=== PATIENT | female | born 1965 | race Two or more races ===

== ENCOUNTER 2019-06-17 10:30 | Outpatient (AMBR) | payer MEDICAID, SELFPAY ==
--- NOTE | 2019-06-17 14:22 | PTNOTE_ITS ---
PT Outpatient Daily Note Date of Service: June 17, 2019 OP Daily Note Visit Reasons: Cervical disc Outpatient Physical Therapy Treatment Date: 06/17/19 Subjective: About the same as time of evaluation Objective: See F/S for therex MT: STM to C/S, CTJ to upper T/S paraspinals x15' Assessment: Moderate TTP of myofascial tension of cervical and T/S paraspinals that affects periscapular mm strength and C/S ROM. Plan: Continue per POC Length of Time (minutes) of Treatment: 30 Minutes Office Procedures PT Procedures PT Date of Service: 06/17/19 Therapeutic Exercise 15 minutes: Yes Manual Ritual Circumciser 15 minutes: Yes
== END 2019-07-11 23:59 | disposition home or self-care (01) ==
PROVIDERS: PCP Physician Assistant; Referring Provider Physician Assistant; Visit Provider Physician Assistant
DX: M50.20 Other cervical disc displacement, unspecified cervical region (principal); M54.6 Pain in thoracic spine
CPT/HCPCS: 97110; 97140

== ENCOUNTER → 2025-05-24 | Outpatient (CLI) | payer MEDICAID, SELFPAY ==
--- NOTE | 2025-05-24 10:00 | XR_ITS ---
Examination: Screening digital mammography, bilateral Computer aided detection 3-D breast Tomosynthesis, bilateral Date and time of exam: May 24, 2025 1008 hours Compared to mammograms dated to August 19, 2009 Indication: Screening Technique: Nonmagnified MLO, CC views of the breasts to been obtained, reconstructed from 3-D Tomosynthesis images. R2 computer aided detection program utilized for evaluation of suspicious masses and/or abnormal calcifications. 3-D Tomosynthesis images obtained. Findings: Scattered areas of fibroglandular density. Benign calcifications. No interval suspicious masses Impression: BI-RADS category II: Benign Findings. Recommend 1 year follow-up mammogram.
== END | disposition home or self-care (01) ==
LOC: CDIM 10:02
PROVIDERS: Referring Provider Physician Assistant; Visit Provider Physician Assistant
DX: Z12.31 Encounter for screening mammogram for malignant neoplasm of breast (principal); R92.323 Mammographic fibroglandular density, bilateral breasts; R92.1 Mammographic calcification found on diagnostic imaging of breast
CPT/HCPCS: 77063; 77067

== ENCOUNTER 2025-06-15 13:12 | Inpatient (IN) | payer MEDICAID, SELFPAY ==
[2025-06-15 13:27] VITALS: BP 157/80; PULSE 92; RESP 17; TEMP 36.8; O2SAT 95
[2025-06-15 13:28] VITALS: BMI 22.6
--- NOTE | 2025-06-15 13:30 | XR_ITS ---
Examination: CT abdomen and pelvis without contrast. Coronal 3-D reconstructions. Sagittal 2-D reconstructions. Date and time of exam:June 15, 2025, 1438 hours INDICATIONS: Generalized abdominal pain and vomiting today. CTDI: vol (mGy): 6.24 DLP: (mGycm): 324 Technique: Axial images of the abdomen have been obtained, 3 mm slice thickness Intravenous contrast material has not been administered. Low dose protocols were performed. One or more of the following dose reduction techniques were used; automated exposure control, adjustment of the mA and/or KV according to patient size, use of iterative reconstruction technique. Findings: Liver is irregular in contour, no focal liver lesions Absent gallbladder Spleen is not enlarged No pancreatic mass No renal or ureteral calculi Multiple fluid distended small bowel loops Normal appendix No diverticulitis Anteverted uterus No adnexal mass Urinary bladder wall thickening up to 4 mm Advanced degenerative disc disease T10-T11, L2-L3, L4-L5, L5-S1 IMPRESSION: Primary hepatocellular disease Multiple fluid distended small bowel loops, differential would include enteritis such as Crohn's disease, early small bowel obstruction, clinical correlation advised Consider three-way abdominal series follow-up
--- NOTE | 2025-06-15 13:32 | EKG_ITS ---
[facility] Test Date: 2025-06-15 Pat Name: PRABHAKAR SIU Department: Room: - Gender: Female Assembler Movement: : 1965 Requested By: Koko Peres Order Number: [id number] Reading MD: Koko Peres Measurements Intervals [place] Rate: 80 P: 55 DC: 159 QRS: 29 QRSD: 85 T: 14 QT: 336 QTc: 389 Interpretive Statements SINUS RHYTHM POSSIBLE RIGHT VENTRICULAR CONDUCTION DELAY [RSR (QR) IN V1/V2] Compared to ECG 11/25/2018 13:47:43 No significant changes /store/S0/[id number].pdf
--- NOTE | 2025-06-15 13:32 | XR_ITS ---
Examination: PA lateral chest 2 views TECHNIQUE: Upright PA lateral chest 2 views Date and time: June 15, 2025, 1400 hours INDICATIONS: Coughing beginning 2 weeks ago. FINDINGS: Normal heart size No lobar pneumonia or pulmonary edema. Partial visualization cervical orthopedic hardware IMPRESSION: No pneumonia or pulmonary edema
[2025-06-15 13:48] VITALS: PULSE 83; RESP 20; O2SAT 97
--- NOTE | 2025-06-15 13:59 | EDNOTE_ITS ---
<Statement entered by Marley Jay MD - 06/16/25 08:20> I, Marley Jay MD, have reviewed the history, exam, and assessment of the patient. I have evaluated the patient independently and agree with the plan of care documented by [ ]. All diagnostic studies were reviewed and discussed. I confirm the diagnosis as documented by the Resident. I was present during the Medical Decision Making for this patient. The patient's plan of care was created between myself and the Resident and consistent with our discussion of the patient's case. ED General RME/HPI General Stated complaint: ABDOMINAL PAIN Time Seen by Provider: 06/15/25 13:24 Arrival date/time: 06/15/25 13:12 RME / HPI RME / HPI narrative: 59-year-old female with past medical history of DM2, hypertension, lumbar com pression fractures, and asthma comes into the ED brought in by ambulance for nausea, diarrhea, vomiting, abdominal pain, and diaphoresis that started around 3 AM this morning. She stated that she woke up drenched in sweat and that she had an abdominal pain that was unbearable and she started having nausea and vomiting therefore she decided to call the ambulance to come into the ED. She states that she does take [place] for her lumbar compression fractures. Otherwise she denies having any fevers, chills, shortness of breath, blood in the vomiting or in the stools, chest pain, or shortness of breath. Admits smoking, denies any illicit drugs, denies alcohol Surgical Hx: C section Related Data Home Medications ?Medication ?Instructions ?Recorded ?Confirmed levothyroxine 150 mcg tablet 150 mcg PO DAILY ##0 02/21 (Synthroid) metformin 500 mg tablet 500 mg PO BIDAC ##0 07/15/13 (Glucophage) alprazolam 0.5 mg tablet (Xanax) 0.5 mg PO BID #0 tabs 01/21/14 gabapentin 600 mg tablet 600 mg PO TID #0 tabs Benazepril Hcl * (LOTENSIN *) 10 mg PO QDAY #0 tabs baclofen 10 mg tablet 10 mg PO TID #0 tabs 7 Previous Rx's ?Medication ?Instructions ?Recorded Hydrocodone/Acetaminophen * (NORCO 1 tab PO Q6H PRN AB DOMINAL PAIN 12/13/15 10/325 *) #40 tabs omeprazole 20 mg capsule,delayed 20 mg PO QDAY ##30 release sulfamethoxazole 800 See Rx Instructions .Route 0 12/10/18 mg-trimethoprim 160 mg tablet .COMPLEX #14 tabs (Bactrim DS) hydrocodone 5 mg-acetaminophen 325 1 tab PO BID PRN pa in #10 tabs 12/30/19 mg tablet ([place]) ibuprofen 800 mg tablet 800 mg PO TID PRN pain #30 t abs 12/30/19 Held on 08/28/21. Instructions: Resume on 08/31/21. Allergies Allergy/AdvReac Type Severity Reaction Status Date / Time phenazopyridine Allergy Severe hives Verified 06/15/25 13:48 bupropion (From Wellbutrin) Allergy Intermediate Confusion Verified 06/15/25 13:48 metoclopramide AdvReac Intermediate IRRITABLE Verified 06/15/25 13:48 prochlorperazine AdvReac Intermediate IRRITABLE Verified 06/15/25 13:48 Review of Systems Review of Systems Systems Reviewed: All systems reviewed, normal except as documented Past Medical History Past Medical History NEUROLOGIC: Negative Neurological Disorders or Seizures CARDIAC: Positive Cardiac Disorders and Hypertension; Negative Congestive Heart Failure RESPIRATORY: Positive Asthma; Negative Chronic Obstructive Pulmonary Disease (COPD) GASTROINTESTINAL: Positive Gastrointestinal Disorders and Gastroesophageal Reflux Disease GENITOURINARY: Negative Renal Disease MUSCULOSKELETAL: Positive Musculoskeletal Disorders (recent neck surgery), Arthritis and Degenerative Disk Disease ENDOCRINE: Positive Endocrine Disorders, Diabetes Mellitus Type 2 and Hypothyroidism; Negative Diabetes Mellitus Type 1 HEMATOLOGIC: Negative Blood Disorders PSYCHO/SOCIAL: Positive Anxiety OTHER HISTORY: Negative Blood Transfusions, Blood Transfusion Reaction or Anesthesia Reactions Surgical History SURGICAL: Positive Thyroidectomy Social History SMOKING STATUS: Never smoker SECOND HAND EXPOSURE: Yes SUBSTANCE USE: unknown ED Exam Narrative Physical exam: Gen: A&O X 3, NAD HEENT: NCAT, EOMI, Pupils reactive MARILY, not icteric. External ears normal. No rhinorrhea. Dry mucous membranes. Neck: Supple, full range of motion, no observable masses, No meningeal sign. Lungs: No Respiratory distress, clear bilateral. CV: RRR, no murmurs. Abdomen: Soft, nondistended, mild tenderness to L side, No rebound tenderness. MSK: No joint swelling, no redness, peripheral pulses presents, lumbar with no edema. Skin: No rashes, petechiae, lesions.. Neuro: No focal neurological deficits appreciated, sensory and motor intact. Psych: Cooperative, appropriate mood and effect. Course Quality Measures none Orders Category Date Time Status Senior Stack Engineer Q4H START 00 Care 06/15/25 13:30 Active Continuous Pulse Oximetry NOW Care 06/15/25 13:30 Active EKG (ED ONLY) *Do not use* NOW Care 06/15/25 13:[address] abdomen pelvis wo con Stat Exams 06/15/25 13:30 Taken CXRP [XR chest 1V portable] Stat Exams 06/15/25 13:32 Completed EKG (ED Only) Stat Exams 06/15/25 13:32 Draft Alcohol, Urine Stat Lab 06/15/25 14:40 Completed CBC Stat Lab 06/15/25 14:12 Completed CMP [Comprehensive Metabolic Panel] Stat Lab 06/15/25 14:12 Completed Drug Screen,Urine Stat Lab 06/15/25 14:40 Completed Lactic Acid [Lactate (Lactic Acid)] Stat Lab 06/15/25 14:12 Completed Magnesium Stat Lab 06/15/25 14:12 Completed UA [Urinalysis] Stat Lab 06/15/25 14:40 Completed Magnesium Sulfate 4 GM Ivpb [Magnesium Sulfate Ivpb] Med 06/15/25 14:59 Active 4 gm in 50 ml IV X1 Ondansetron Inj [Zofran Inj] Med 06/15/25 17:42 Once 4 mg IVP X1 ONE Ringers Lactated 1000 ml [Lactated Ringers] 1,000 ml Med 06/15/25 13:32 Discontinued IV 999 mls/hr Vital Signs Vital signs: Vital Signs Temperature 98.3 F 06/15/25 13:27 Pulse Rate 92 06/15/25 13:27 Respiratory Rate 17 06/15/25 13:27 Blood Pressure 157/80 H 06/15/25 13:27 Pulse Oximetry (%) 95 06/15/25 13:27 Oxygen Delivery Method Room Air 06/15/25 13:27 Discharge Plan Prescriptions/Referrals Prescriptions/Med Rec: No Action ibuprofen 800 mg tablet 800 mg PO TID PRN (Reason: pain) Qty: 30 0RF hydrocodone-acetaminophen [[place]] 5-325 mg tablet 1 tab PO BID MDD 10mg PRN (Reason: pain) Qty: 10 0RF metformin [Glucophage] 500 MG tablet 500 mg PO BIDAC Qty: 0 levothyroxine [Synthroid] 150 MCG tablet 150 mcg PO DAILY Qty: 0 alprazolam [Xanax] 0.5 MG tablet 0.5 mg PO BID Qty: 0 Hydrocodone/Acetaminophen * (NORCO 10/325 *) 1 TAB tablet 1 tab PO Q6H PRN (Reason: ABDOMINAL PAIN) Qty: 40 0RF gabapentin 600 MG tablet 600 mg PO TID Qty: 0 baclofen 10 MG tablet 10 mg PO TID Qty: 0 Benazepril Hcl * (LOTENSIN *) 10 MG tablet 10 mg PO QDAY Qty: 0 omeprazole 20 MG capsule,delayed release(DR/EC) 20 mg PO QDAY Qty: 30 0RF sulfamethoxazole-trimethoprim [Bactrim DS] 800-160 mg tablet See Rx Instructions .ROUTE .COMPLEX Qty: 14 0RF Rx Instructions: 1 tablet p.o. twice daily for 7 days Referrals: Nata Wang PA-C [Primary Care Provider] - In 1 week Problem List Clinical Impression: Abdominal pain, SBO (small bowel obstruction) Patient/Caregiver Discharge Instructions Print Language: Greenlandic MDM Narrative MDM hospital course: Patient was seen and evaluated by me upon arrival. Vitals were stable. At this time patient was complaining of some abdominal pain with some nausea, but otherwise no other complaints. Diagnostic imaging and labs were ordered. 14:58: Labs reviewed and showed low Mg. Ordered 4 gm Mg. 17:20: CT suspicious for early SBO. Will reevaluate patient and do PO trial as physical exam was not consistent with classic findings of SBO. 17:42: Patient reassessed. Still nauseated, but no vomiting. Abdomen still soft with good bowel sounds, not tympanic. Has pain on left side with palpation. Ordered Zofran 17:52 Care signed off to chain sales consultant ER physician, Dr. Pablo. Case disclosed with Attending Dr. Pierre Peres PGY2 Disclaimer: Even though this this note was dictated by speech recognition and even though it was carefully revised there may still be minor errors in retail sales representative due to voice recognition software. Medication Administration(s) Medication Administration History Magnesium Sulfate (Magnesium Sulfate Ivpb) 4 gm in 50 mls @ 12.5 mls/hr IV X1 ONE Stop: 06/15/25 18:58 Discontinued Medications Lactated Ringer's (Lactated Ringers) 1,000 mls @ 999 mls/hr IV .Q1H1M ONE Stop: 06/15/25 14:32 Ondansetron HCl (Ondansetron Inj 2 Mg/Ml Inj 2 Ml) 4 mg IVP X1 ONE; Protocol Stop: 06/15/25 17:43
[2025-06-15 14:26] LABS: Lactate (Lactic Acid) 0.9 mMol/L (0.4-2.0)
[2025-06-15 14:30] LABS: Basophils # (Auto) 0.0 Thou/mm3 (0.0-0.2); Basophils % (Auto) 0 % (0-2.5); Eosinophils # (Auto) 0.1 Thou/mm3 (0.0-0.5); Eosinophils % (Auto) 1 % (0-10); Hematocrit 37.8 % (36.0-46.0); Hemoglobin 13.1 g/dL (12.0-16.0); Immature Granulocytes Auto 0.02 Thou/mm3 (0.00-0.00); Lymphocytes # (Auto) 0.2 Thou/mm3 (1.0-4.8); Lymphocytes % (Auto) 2 % (10-50); Mean Corpuscular HGB Conc 34.7 g/dl (31.0-37.0); Mean Corpuscular Hemoglobin 32.3 pg (25.0-35.0); Mean Corpuscular Volume 93 fL (80-100); Monocytes # (Auto) 0.2 Thou/mm3 (0.0-0.8); Monocytes % (Auto) 2 % (0-12); Neutrophils # (Auto) 9.9 Thou/mm3 (1.8-7.7); Neutrophils % (Auto) 95 % (37-80); Nucleated Red Blood Cell # 0.00 Thou/mm3 (0.00-0.00); Nucleated Red Blood Cell % 0 /100 WBC (0); Platelet Count 217 Thou/mm3 (140-440); RDW Standard Deviation 43.5 fL (36.4-46.3); Red Blood Count 4.06 Miln/mm3 (4.00-5.20); White Blood Count 10.4 Thou/mm3 (3.6-11.0)
[2025-06-15 14:54] LABS: Alanine Aminotransferase 12 U/L (10-49); Albumin, Serum 4.3 gm/dL (3.4-4.8); Albumin/Globulin Ratio 2.2 (1.2-2.2); Alkaline Phosphatase 56 U/L (46-116); Anion Gap 8 (7-16); Aspartate Amino Transferase 16 U/L (0-34); BUN/Creatinine Ratio 27 Ratio (12-20); Bilirubin,Total 0.5 mg/dL (0.3-1.2); Blood Urea Nitrogen 16 mg/dL (9-23); Calcium 8.5 mg/dL (8.3-10.6); Calcium (Corrected) 8.5 mg/dL (8.5-10.1); Carbon Dioxide 21.6 mMol/L (20.0-31.0); Chloride 109 mMol/L (98-107); Creatinine (Component) 0.6 mg/dL (0.6-1.3); Estimated Creatinine Clearance 75.2 mL/min (>60); Globulin 2.0 gm/dL (2.3-3.5); Glucose 180 mg/dL (74-106); Magnesium 1.2 mg/dL (1.6-2.6); Osmolality,Calculated 283 (275-295); Potassium 3.9 mMol/L (3.4-5.1); Sodium 139 mMol/L (136-145); Total Protein 6.3 gm/dL (5.7-8.2); eGFR > 60 See Note
[2025-06-15 15:01] LABS: Collection Type, Urine Catheter
[2025-06-15 15:08] LABS: Bilirubin,Urine Negative (Negative); Blood,Urine 2+ (Negative); Clarity,Urine Clear (Clear/Hazy); Color,Urine Lt-Yellow (Lt Yel-Yel); Glucose, Urine 1+ (Negative); Ketones,Urine 1+ (Negative); Leukocyte Esterase,Urine Positive (Negative); Nitrite,Urine Negative (Negative); PH,Urine 6.0 (5.0-7.0); Protein,Urine Trace (Neg - Trace); RBC,Urine 9 /hpf (0-3); Specific Gravity,Urine 1.023 (1.001-1.035); Squamous Epithelial Cell,Urine 1 /hpf (0-5); Urobilinogen,Urine Negative mg/dL (0.0-1.0); WBC,Urine 2 /hpf (0-5)
[2025-06-15 15:48] LABS: Alcohol, Urine Negative (Negative); Amphetamine/Methamp Scrn,U Negative (Negative); Barbiturate Screen,Urine Negative (Negative); Benzodiazepines Screen,Urine Negative (Negative); Benzoylecgonine Screen, Ur Negative (Negative); Fentanyl Screen,Urine Negative (Negative); Opiate Screen,Urine Positive (Negative); THC Screen,Urine Positive (Negative)
[2025-06-15 17:36] VITALS: BP 143/78; PULSE 87; RESP 19; TEMP 37.3; O2SAT 98
[2025-06-15 17:43] VITALS: BP 143/78; PULSE 80; RESP 16; TEMP 36.9; O2SAT 96
[2025-06-15] MEDS: RINGERS LACTATED 1000 ML 1,000 ML 999 ML IV (18:06)
[2025-06-15] MEDS: Magnesium Sulfate 4 GM Ivpb 4 GM/50 ML BAG IV (18:07)
[2025-06-15] MEDS: ONDANSETRON INJ 2 MG/ML INJ 2 ML 4 MG IVP (18:08)
--- NOTE | 2025-06-15 18:13 | PD.EDADDENDU ---
Emergency Room Addendum <Aurora Smiley - Last Filed: 06/15/25 19:16> Addendum Narrative: I took over the care from previous shift physician, Dr. Vasquez, attending, Dr. Jay, at 6 PM on 06/15/25. See previous notes for complete H & P and ED course. I reviewed all diagnostic test results. Diagnoses include: SBO. I discussed the case with our GI and hospitalist. About the presentation and exam and diagnostics and treatments here. And need of further care in the hospital. Will accept the patient. Timmy Pablo MD <Timmy Pablo MD - Last Filed: 06/16/25 02:56> Addendum Narrative: I took over the care from previous shift physician, Dr. Vasquez (attending Dr. Jay) at 6 PM on 06/15/25. See previous notes for complete H & P and ED course. I reviewed all diagnostic test results. Diagnoses include: SBO and Enteritis. I discussed the case with our GI and hospitalist. About the presentation and exam and diagnostics and treatments here. And need of further care in the hospital. Will accept the patient. Timmy Pablo MD
[2025-06-15] MEDS: HYDROmorphone INJ 2 MG/ML VIAL 1 MG IVP (18:26)
--- NOTE | 2025-06-15 20:21 | XR_ITS ---
Examination: AP chest single view TECHNIQUE: AP portable upright chest single view Date and time: June 15, 20251 hours INDICATIONS: Post orogastric tube placement FINDINGS: Orogastric tube in the stomach satisfactory position. Normal heart size. No pneumonia or pulmonary edema. IMPRESSION: Orogastric tube in the stomach satisfactory position
[2025-06-15] MEDS: KETOROLAC INJ 30 MG/ML VIAL IVP (20:42)
[2025-06-15] MEDS: HYDROmorphone INJ 2 MG/ML VIAL IVP (20:43)
[2025-06-15] MEDS: CIPROFLOXACIN/D5w 400 MG IVPB 400 MG/200 ML BAG 200 MG IV (20:43)
--- NOTE | 2025-06-15 21:09 | PD.IMCONS ---
HPI Data of Consult Primary Care Provider: Nata Wang PA-C Consult Narrative Reason for consult: Nausea vomiting, pain abdomen, abnormal CTAP History of present illness: 59 years old female comes in for evaluation via ambulance to the emergency room because of sudden severe abdominal pain accompanied by nausea vomiting she also had some diarrhea Vomiting was nonbloody CT scan of the abdomen pelvis showed dilated loops of small bowel with air-fluid levels suggestive of either early enteritis or small bowel obstruction I got a call from the ER physician Dr. Pablo and the patient was subsequently admitted She does have a history of diabetes mellitus type 2 essential hypertension compression fractures of the lumbosacral spine for which she takes Victor cc:: cc: Review of Systems Review of Systems Systems Reviewed: All systems reviewed, normal except as documented Meds Home Medications and Allergies Home Medications ?Medication ?Instructions ?Recorded ?Confirmed ?Type alprazolam 0.5 mg tablet (Xanax) 0.5 mg PO BID #0 tabs 01/21/14 06/16/25 History baclofen 10 mg tablet 10 mg PO TID #0 tabs 02/01/17 06/16/25 History benazepril 20 mg tablet 20 mg PO DAILY 06/16/25 06/16/25 History calcium 600 mg (as 1 tab PO Q12H 06/16/25 06/16/25 History carbonate)-vitamin D3 10 mcg (400 unit) tablet fluticasone furoate 200 1 inh inhalation DAILY 06/16/25 06/16/25 History mcg/actuation blister powder for inhalation (Arnuity Ellipta) gabapentin 800 mg tablet 800 mg PO QID 06/16/25 06/16/25 History ibuprofen 600 mg tablet 600 mg PO Q6H 06/16/25 06/16/25 History levothyroxine 112 mcg tablet 112 mcg PO DAILY 06/16/25 06/16/25 History linaclotide 145 mcg capsule 145 mcg PO DAILY 06/16/25 06/16/25 History (Linzess) tramadol 50 mg tablet 50 mg PO Q6H 06/16/25 06/16/25 History Allergies Allergy/AdvReac Type Severity Reaction Status Date / Time phenazopyridine Allergy Severe hives Verified 06/15/25 13:48 bupropion (From Wellbutrin) Allergy Intermediate Confusion Verified 06/15/25 13:48 metoclopramide AdvReac Intermediate IRRITABLE Verified 06/15/25 13:48 prochlorperazine AdvReac Intermediate IRRITABLE Verified 06/15/25 13:48 Exam Vital Signs Temp Pulse Resp BP Pulse Ox O2 Del Method 98.4 F 80 16 143/78 H 96 Room Air 06/15/25 17:43 06/15/25 17:43 06/15/25 17:43 06/15/25 17:43 06/15/25 17:43 06/15/25 17:43 Constitutional Comments: Chronically ill-appearing Routine Respiratory Exam Comments: Normal to auscultation Routine Abdominal Exam Comments: Hypoactive bowel sounds Results Labs 06/16/25 05:41 06/16/25 05:41 Labs: Short CBC 06/15/25 Range/Units 14:12 WBC 10.4 (3.6-11.0) Thou/mm3 Hgb 13.1 (12.0-16.0) g/dL Hct 37.8 (36.0-46.0) % Plt Count 217 (140-440) Thou/mm3 BMP 06/15/25 14:12 Sodium 139 Potassium 3.9 Chloride 109 H Carbon Dioxide 21.6 BUN 16 Creatinine 0.6 Glucose 180 H Calcium 8.5 Liver Function 06/15/25 Range/Units 14:12 Total Bilirubin 0.5 (0.3-1.2) mg/dL AST 16 (0-34) U/L ALT 12 (10-49) U/L Alkaline Phosphatase 56 (46-116) U/L Albumin 4.3 (3.4-4.8) gm/dL Urine 06/15/25 Range/Units 14:40 Urine Color Lt-Yellow (Lt Yel-Yel) Urine Clarity Clear (Clear/Hazy) Urine pH 6.0 (5.0-7.0) Ur Specific [place] 1.023 (1.001-1.035) Urine Protein Trace (Neg - Trace) Urine Glucose (UA) 1+ A (Negative) Assessment and Plan Additional Assessment & Plan Additional Plan: Nausea vomiting and diarrhea# with abnormal CT scan of the abdomen pelvis differential diagnosis include Infectious versus inflammatory enterocolitis partial complete bowel obstruction ileus Plan N.p.o. NGT to intermittent suction Stool culture and sensitivity with stool for C. difficile and Gram stain Will follow the patient Other medical problems include Diabetes mellitus type 2 Essential hypertension Compression fractions lumbosacral spine
[2025-06-15 21:13] LABS: Thyroid Stimulating Hormone 0.23 uIU/mL (0.55-4.78)
[2025-06-15] MEDS: RINGERS LACTATED 1000 ML 1,000 ML 75 ML IV (21:31)
[2025-06-15] MEDS: metroNIDAZOLE/NS 500 MG IVPB 500 MG/100 ML BAG 100 MG IV (21:35)
[2025-06-15 21:42] VITALS: BP 144/74; PULSE 90; RESP 17; TEMP 37.1; O2SAT 93
--- NOTE | 2025-06-15 21:54 | PD.RESHP ---
Documentation for date of: 06/15/25 [facility] History of Present Illness Chief complaint: unbearable stomach pain, vomiting, and diarrhea. History of present illness: The patient is a 59-year-old female with PMH significant for type 2 diabetes mellitus, hypertension, hypothyroidism, asthma, chronic pain due to lumbar compression fractures (on [place]), and a prior episode of pancreatitis. She presented to the ED early this morning (3 AM) after waking up with severe, stabbing and cramping abdominal pain associated with nausea, vomiting, diaphoresis, and diarrhea. She reports that the pain radiates to the left side and back, and is worse with movement and deep breathing. She denies any hematemesis, melena, hematochezia, fevers, chills, or chest pain. She reports that this episode is not similar to her prior pancreatitis, describing the quality and location of the pain as different. She has daily bowel movements, with her most recent at 1 PM today (diarrhea). She has never been hospitalized for bowel obstruction, though she has had multiple colonoscopies for personal and family history of colon cancer (grandmother). Her last colonoscopy revealed a non-cancerous polyp, and she is due for a repeat in a few months. She is compliant with home medications including insulin and thyroid meds, checks her blood sugars at home, and denies missing doses. She admits to daily marijuana use, rare cigarette smoking, and remote cocaine use in the 1980s. No alcohol use. Currently in the ED, she was started on IV fluids and electrolyte repletion, placed on NPO and NG to LIS, and started on antibiotics and supportive care. ED Course: CT A/P: Distended small bowel loops, suspicious for early SBO vs enteritis. Electrolytes: Na 139, K 3.9, Cr 0.6, Ca 8.5, Mg 1.2 Lipase, amylase pending U tox: Positive for opioids and marijuana Placed NG tube to LIS, started on Zofran, Ciprofloxacin 400 mg IV q12h, and Metronidazole 500 mg IV q8h Started on LR @ 75 mL/hr ROS: General: Positive for diaphoresis, nausea, fatigue. No fever or chills. HEENT: No headache, visual changes. Cardiac: No chest pain or palpitations. Resp: No SOB or wheezing. GI: Positive for abdominal pain, nausea, vomiting, and diarrhea. No blood in stool or emesis. : Denies dysuria or hematuria. MSK: Back pain (chronic); no new weakness. Neuro: No focal deficits, dizziness, or syncope. Skin: No rashes or lesions. Psych: Anxiety, no hallucinations or suicidal ideation. PMH: Type 2 Diabetes Mellitus Hypertension Hypothyroidism Asthma Chronic back pain s/p lumbar compression fractures Anxiety Prior pancreatitis PSH: Thyroidectomy Cervical spine surgery Medications (full med rec pending): [place] Ozempic Gabapentin Baclofen levothyroxine Allergies: Reglan (unclear reaction) Compazine (unclear reaction) Social History: Smokes cigarettes rarely (~1/week) Daily marijuana use No alcohol use Remote cocaine use in 1980s Lives locally with family Family History: Grandmother had colon cancer No other known hereditary diseases Exam Vital Signs Temp Pulse Resp BP Pulse Ox O2 Del Method 98.7 F 90 17 144/74 H 93 L Room Air 06/15/25 21:42 06/15/25 21:42 06/15/25 21:42 06/15/25 21:42 06/15/25 21:42 06/15/25 21:42 Narrative Exam General: A&O x3, NAD, uncomfortable due to pain HEENT: NCAT, PERRL, dry mucous membranes Neck: Supple, no LAD or meningismus CV: RRR, no murmurs Resp: Clear to auscultation bilaterally, no distress Abdomen: Soft, mild L-sided tenderness, non-distended, BS present, no rebound/guarding MSK: No edema, no joint erythema, lumbar spine tender Skin: No rash or lesions Neuro: CN 2?12 intact, no motor/sensory deficits Psych: Appropriate mood and affect Results: Labs 06/15/25 14:12 06/15/25 14:12 Labs: Short CBC 06/15/25 Range/Units 14:12 WBC 10.4 (3.6-11.0) Thou/mm3 Hgb 13.1 (12.0-16.0) g/dL Hct 37.8 (36.0-46.0) % Plt Count 217 (140-440) Thou/mm3 BMP 06/15/25 14:12 Sodium 139 Potassium 3.9 Chloride 109 H Carbon Dioxide 21.6 BUN 16 Creatinine 0.6 Glucose 180 H Calcium 8.5 Liver Function 06/15/25 Range/Units 14:12 Total Bilirubin 0.5 (0.3-1.2) mg/dL AST 16 (0-34) U/L ALT 12 (10-49) U/L Alkaline Phosphatase 56 (46-116) U/L Albumin 4.3 (3.4-4.8) gm/dL Urine 06/15/25 Range/Units 14:40 Urine Color Lt-Yellow (Lt Yel-Yel) Urine Clarity Clear (Clear/Hazy) Urine pH 6.0 (5.0-7.0) Ur Specific [place] 1.023 (1.001-1.035) Urine Protein Trace (Neg - Trace) Urine Glucose (UA) 1+ A (Negative) Quality Measures Quality Measures VTE prophylaxis Medications Home Medications and Allergies Home Medications ?Medication ?Instructions ?Recorded ?Confirmed ?Type alprazolam 0.5 mg tablet (Xanax) 0.5 mg PO BID #0 tabs 01/21/06/16/25 History baclofen 10 mg tablet 10 mg PO TID #0 tabs 02/01/17 06/16/25 History benazepril 20 mg tablet 20 mg PO DAILY 06/16/25 06/16/25 History calcium 600 mg (as 1 tab PO Q12H 06/16/25 06/16/25 History carbonate)-vitamin D3 10 mcg (400 unit) tablet fluticasone furoate 200 1 inh inhalation DAILY 06/16/25 06/16/25 History mcg/actuation blister powder for inhalation (Arnuity Ellipta) gabapentin 800 mg tablet 800 mg PO QID 06/16/25 06/16/25 History ibuprofen 600 mg tablet 600 mg PO Q6H 06/16/25 06/16/25 History levothyroxine 112 mcg tablet 112 mcg PO DAILY 06/16/25 06/16/25 History linaclotide 145 mcg capsule 145 mcg PO DAILY 06/16/25 06/16/25 History (Linzess) tramadol 50 mg tablet 50 mg PO Q6H 06/16/25 06/16/25 History Allergies Allergy/AdvReac Type Severity Reaction Status Date / Time phenazopyridine Allergy Severe hives Verified 06/15/25 13:48 bupropion (From Wellbutrin) Allergy Intermediate Confusion Verified 06/15/25 13:48 metoclopramide AdvReac Intermediate IRRITABLE Verified 06/15/25 13:48 prochlorperazine AdvReac Intermediate IRRITABLE Verified 06/15/25 13:48 Visit Medications Acetaminophen (Acetaminophen 325 Mg Tablet) 650 mg PO Q6H PRN PRN Reason: Fever >101.5 Stop: 07/15/25 20:37 Enoxaparin Sodium (Enoxaparin Sod Inj 40 Mg/0.4 Ml Syringe) 40 mg SC QDAY [facility] Stop: 06/30/25 08:59 Lactated Ringer's (Lactated Ringers) 1,000 mls @ 75 mls/hr IV .[id number] TIMOTHY Stop: 07/15/25 20:44 Last Admin: 06/15/25 21:31 Dose: 75 mls/hr Metronidazole (Flagyl 500 Mg Iv) 500 mg in 100 mls @ 200 mls/hr IV Q8HR [facility] Stop: 06/23/25 05:59 Ciprofloxacin/Dextrose (Cipro Ivpb) 400 mg in 200 mls @ 200 mls/hr IV Q12HR [facility] Stop: 06/23/25 08:59 Ondansetron HCl (Ondansetron Inj 2 Mg/Ml Inj 2 Ml) 4 mg IVP Q6H PRN; Protocol PRN Reason: NAUSEA OR VOMITING Stop: 07/15/25 20:37 Discontinued Medications Hydromorphone HCl (Hydromorphone Inj 2 Mg/Ml Vial) 1 mg IVP X1 ONE Stop: 06/15/25 18:16 Last Admin: 06/15/25 18:26 Dose: 1 mg Hydromorphone HCl (Hydromorphone Inj 2 Mg/Ml Vial) 2 mg IVP X1 ONE Stop: 06/15/25 20:21 Last Admin: 06/15/25 20:43 Dose: 2 mg Lactated Ringer's (Lactated Ringers) 1,000 mls @ 999 mls/hr IV .Q1H1M ONE Stop: 06/15/25 14:32 Last Infusion: 06/15/25 19:25 Dose: Infused Magnesium Sulfate (Magnesium Sulfate Ivpb) 4 gm in 50 mls @ 12.5 mls/hr IV X1 ONE Stop: 06/15/25 18:58 Last Admin: 06/15/25 18:07 Dose: 12.5 mls/hr Ciprofloxacin/Dextrose (Cipro Ivpb) 400 mg in 200 mls @ 200 mls/hr IV X1 ONE Stop: 06/15/25 20:20 Last Admin: 06/15/25 20:43 Dose: 200 mls/hr Metronidazole (Flagyl 500 Mg Iv) 500 mg in 100 mls @ 100 mls/hr IV X1 ONE Stop: 06/15/25 20:20 Ketorolac Tromethamine (Ketorolac Inj 30 Mg/Ml Vial) 30 mg IVP X1 ONE Stop: 06/15/25 19:22 Last Admin: 06/15/25 20:42 Dose: 30 mg Ondansetron HCl (Ondansetron Inj 2 Mg/Ml Inj 2 Ml) 4 mg IVP X1 ONE; Protocol Stop: 06/15/25 17:43 Last Admin: 06/15/25 18:08 Dose: 4 mg Assessment & Plan Plan 59-year-old female with history of DM2, HTN, hypothyroidism, asthma, chronic pain on [place], and prior pancreatitis presenting with acute onset abdominal pain, nausea, vomiting, diarrhea, and diaphoresis since early this morning, now with CT suspicious for early SBO vs enteritis and requiring NG suction. #Unspecified intestinal obstruction CT abdomen/pelvis shows distended small bowel loops, suspicious for early SBO vs enteritis. Patient presents with nausea, vomiting, abdominal pain radiating to the back, and diarrhea. Abdomen soft, non-distended, with preserved bowel sounds and no peritoneal signs. NG tube placed to LIS. Low suspicion for mesenteric ischemia given absence of leukocytosis, lactate within normal limits (0.9), and reassuring abdominal exam, but will continue to monitor closely. DDx includes IBD, SBO, Enteritis Plan: NPO LR at 75 mL/hr NG tube to LIS Abdominal exam q4h Continue antibiotics: Metronidazole 500 mg IV q8h + Ciprofloxacin 400 mg IV q12h Monitor labs: repeat lactate, lipase/amylase, CRP, ESR Pending stool studies: calprotectin, C. 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 Possible infectious or inflammatory process in differential. Plan: Continue stool studies as above Maintain hydration Monitor for changes in stool character or frequency Pain control #Personal history of other digestive disorders History of prior pancreatitis. Patient states current pain is different in character and location. She recently visited a general surgeon in [place] and was scheduled for an abdominal MRI this , though the indication was unclear, she reported it was for distention, but no abdominal distention noted on exam today. Plan: Monitor for changes in abdominal exam Follow up on outpatient MRI records if available Monitor lipase/amylase pending to rule out recurrent pancreatitis #Type 2 diabetes mellitus without complications Glucose 180 in ED; compliant with meds at home. A1c pending. Gastroparesis unlikely Plan: Hold Ozempic while NPO Accuchecks QID Sliding scale insulin A1c pending #Hypothyroidism, unspecified On thyroid replacement. TSH low (0.23); free T4 pending. Plan: Hold thyroid meds while NPO Resume when tolerating PO Monitor free T4 #Chronic low back pain Chronic [place] user. Pain today not improved with usual regimen. Plan: Morphine 2 mg IV q4h PRN Assess need for higher-dose opioids if pain uncontrolled Avoid PO opioids while NPO #Opioid dependence, uncomplicated Chronic [place] use. UTOX positive. No signs of withdrawal. Plan: Continue inpatient pain management Monitor for withdrawal symptoms #Cannabis dependence, uncomplicated Daily use; no acute intoxication. Plan: No acute intervention needed #Essential hypertension BP stable in ED. Plan: Hold antihypertensives while NPO Resume when PO #Asthma, uncomplicated No active symptoms. Plan: Monitor Health Maintenance: Disposition: Admitted to Internal Medicine, Med/Surg level of care Feeding: NPO Thromboprophylaxis: Enoxaparin 40 mg SQ daily GI prophylaxis: Pantoprazole 40 mg IV daily Code Status: Full Code ----- Plan discussed with attending physician Dr. Bigg Cui MD PGY-1 Internal Medicine Attending Provider Attestation/Addendum Attending Provider Attestation/Addendum After examination of the patient and review of the clinical data I feel that this patient needs admission to the hospital for further treatment/evaluation. I Yousif Parks MD, attest that I was physically present for guzmán portions of evaluation, and examined patient, labs and imagings and plan of care were discussed with IM residents team, and I agree with the findings and plans documented above.
[2025-06-15 22:10] LABS: Lactate (Lactic Acid) 1.0 mMol/L (0.4-2.0)
[2025-06-15 22:16] LABS: Sed Rate (ESR) 10 mm/hr (0-30)
[2025-06-15 22:27] LABS: Glucose Estimated Average 146 mg/dL (80-131); Hemoglobin A1C 6.7 % Hgb (4.8-6.0)
[2025-06-15 22:35] LABS: Amylase 72 U/L (30-118); Lipase 35 U/L (12-53)
[2025-06-15 23:09] LABS: Free T4 (Free Thyroxine) 1.43 ng/dL (0.89-1.76); Troponin I < 0.002 ng/mL (0.0-0.045)
[2025-06-15 23:40] LABS: C-Reactive Protein 0.8 mg/dL (0.0-0.9)
[2025-06-15 23:57] VITALS: PULSE 86
[2025-06-16] VITALS (8 sets, daily range): BP systolic 135–164; BP diastolic 71–88; PULSE 65–83; RESP 15–97; TEMP 36.1–36.9; O2SAT 94–97
--- NOTE | 2025-06-16 00:25 | PC.NURSE ---
Report given to floor nurse JESUS Stoll
[2025-06-16] MEDS: MORPHINE SULF INJ 10 MG/ML VIAL 2 MG IVP ×5 (03:12→20:23)
--- NOTE | 2025-06-16 04:05 | PC.NURSE ---
Pt complaining of abd and back pain not relieved by morphine. Dr. Kingston was made aware, waiting for new orders fro pt.
[2025-06-16] MEDS: ONDANSETRON INJ 2 MG/ML INJ 2 ML 4 MG IVP ×2 (04:34→17:41)
[2025-06-16] MEDS: KETOROLAC INJ 30 MG/ML VIAL IVP (04:34)
[2025-06-16 06:00] LABS: Basophils # (Auto) 0.0 Thou/mm3 (0.0-0.2); Basophils % (Auto) 0 % (0-2.5); Eosinophils # (Auto) 0.0 Thou/mm3 (0.0-0.5); Eosinophils % (Auto) 1 % (0-10); Hematocrit 32.8 % (36.0-46.0); Hemoglobin 11.0 g/dL (12.0-16.0); Immature Granulocytes Auto 0.02 Thou/mm3 (0.00-0.00); Lymphocytes # (Auto) 0.3 Thou/mm3 (1.0-4.8); Lymphocytes % (Auto) 6 % (10-50); Mean Corpuscular HGB Conc 33.5 g/dl (31.0-37.0); Mean Corpuscular Hemoglobin 31.3 pg (25.0-35.0); Mean Corpuscular Volume 93 fL (80-100); Monocytes # (Auto) 0.2 Thou/mm3 (0.0-0.8); Monocytes % (Auto) 4 % (0-12); Neutrophils # (Auto) 5.0 Thou/mm3 (1.8-7.7); Neutrophils % (Auto) 89 % (37-80); Nucleated Red Blood Cell # 0.00 Thou/mm3 (0.00-0.00); Nucleated Red Blood Cell % 0 /100 WBC (0); Platelet Count 192 Thou/mm3 (140-440); RDW Standard Deviation 42.8 fL (36.4-46.3); Red Blood Count 3.51 Miln/mm3 (4.00-5.20); White Blood Count 5.6 Thou/mm3 (3.6-11.0)
[2025-06-16 06:09] LABS: INR 1.0 (0.9-1.3); Partial Thromboplastin Time 30.5 Seconds (22.0-36.0); Prothrombin Time 10.9 Seconds (9.0-12.2)
[2025-06-16 06:34] LABS: Anion Gap 5 (7-16); BUN/Creatinine Ratio 28 Ratio (12-20); Blood Urea Nitrogen 17 mg/dL (9-23); Calcium 7.8 mg/dL (8.3-10.6); Carbon Dioxide 23.9 mMol/L (20.0-31.0); Chloride 108 mMol/L (98-107); Creatinine (Component) 0.6 mg/dL (0.6-1.3); Estimated Creatinine Clearance 75.2 mL/min (>60); Glucose 160 mg/dL (74-106); Magnesium 2.0 mg/dL (1.6-2.6); Osmolality,Calculated 278 (275-295); Potassium 3.4 mMol/L (3.4-5.1); Sodium 137 mMol/L (136-145); eGFR > 60 See Note
[2025-06-16 08:23] LABS: Glucose Estimated Average 148 mg/dL (80-131); Hemoglobin A1C 6.8 % Hgb (4.8-6.0)
[2025-06-16] MEDS: ENOXAPARIN SOD INJ 40 MG/0.4 ML SYRINGE SC (09:24)
[2025-06-16] MEDS: CIPROFLOXACIN/D5w 400 MG IVPB 400 MG/200 ML BAG 200 MG IV ×2 (09:24→20:23)
--- NOTE | 2025-06-16 10:45 | CHAP ---
JGave words of comfort and prayer.
[2025-06-16] MEDS: ONDANSETRON INJ 2 MG/ML INJ 2 ML 4 MG IV (11:19)
[2025-06-16] MEDS: ACETAMINOPHEN SUPP 650 MG SUPP PR (11:19)
[2025-06-16] MEDS: RINGERS LACTATED 1000 ML 1,000 ML 75 ML IV (11:23)
--- NOTE | 2025-06-16 11:28 | PC.SS ---
Follow up note: Pt has NG Tube. On IV antibiotic. 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
[2025-06-16] MEDS: metroNIDAZOLE/NS 500 MG IVPB 500 MG/100 ML BAG 200 MG IV ×2 (12:05→22:14)
--- NOTE | 2025-06-16 14:49 | XR_ITS ---
Examination: Small bowel series Abdomen 4 views Date and time: June 16, 2025 1520 hours INDICATIONS: Abdominal pain and distention this week, small bowel obstruction pattern on CT abdomen pelvis study yesterday TECHNIQUE AND FINDINGS: Hoop Cutter AP supine abdomen demonstrates abundant stool throughout the colon Patient received 120 cc Gastrografin through the orogastric tube with immediate 30 minute and 1 hour films obtained These demonstrate nondistended small bowel loops in contrast; Impression : Negative for small bowel obstruction No further films are needed
--- NOTE | 2025-06-16 18:22 | ESPR_ITS ---
<Statement entered by Iva Narvaez MD - 06/17/25 17:11> Patient was seen and examined at bedside. I agree on the assessment and plan on this note as documented by resident Renu Yost PGY1. Patient examined at bedside, admitted for small bowel obstruction overnight, NG tube continues to have significant suction, ~250 cc, coffee-ground suction noted, consulted GI, started on Protonix 40 twice daily, will obtain small bowel series once patient has low amount of suction to rule out SBO. Does have underlying concern of heart failure, ordered echocardiogram. Patient requesting CPAP for underlying NURIS, ordered. Continue sliding scale insulin for diabetes. Patient denies passing any gas or stools for now. Pending GI evaluation, continue NG tube. Disposition MedSurg, pending GI evaluation. Case discussed with attending Dr. Liseth Narvaez MD PGY-2 Documentation for date of: 06/16/25 Subjective Subjective Interval history: The patient 59-year-old female past medical history of type 2 diabetes, hypertension, asthma, chronic pain due to lumbar compression fracture (on [place]), thyroid cancer s/p thyroidectomy, obstructive sleep apnea and valley fever. Presented to the ED with 1 day of 7 episode of nonbilious and nonbloody vomiting, severe nausea, diarrhea, acute abdominal pain and diaphoresis. Patient admitted for suspicion of early small bowel obstruction versus enteritis requiring NG tube suction. Today Today when I examined the patient the patient was in in acute distress, complaining of severe abdominal pain and nausea. She also reported new onset symptoms of shortness of breath with walking with short distance, orthopnea, PND. For the past 2 weeks she noticed increase cough frequency and increased mucus production, mucus has becoming green. When examined, NG tube drained 250cc this morning. Exam Vital Signs Temp Pulse Resp BP Pulse Ox O2 Del Method 97.9 F 71 17 145/76 H 97 Room Air 06/16/25 15:45 06/16/25 15:45 06/16/25 15:45 06/16/25 15:45 06/16/25 15:45 06/16/25 15:45 Narrative Exam Physical Exam: General: Alert, moderate distress, ill-appearing Skin: Warm, dry, intact, no obvious rash. HEENT: normocephalic, atraumatic.Normal conjunctiva, PERRL,no scleral icterus Cardiovascular: Regular rate and rhythm, no murmur, +S1/S2. Respiratory: Bilateral crackles, expiratory wheezes bilaterally Gastrointestinal: Generalized tenderness but more prominent on the left side, mild distention, NG-tube Extremities: No edema, no cyanosis, no clubbing. 2+ radial pulse bilaterally, 2+ pedal pulse bilaterally. Neuro: No focal deficits observed. Conversant, moving all extremities. Psychiatric: Cooperative, appropriate affect. Objective Labs 06/17/25 05:40 06/17/25 05:40 Labs: Laboratory Results - last 24 hr 06/15/25 06/15/25 06/16/25 14:12 21:48 05:41 WBC 5.6 D RBC 3.51 L Hgb 11.0 L D Hct 32.8 L MCV 93 MCH 31.3 MCHC 33.5 RDW Std Deviation 42.8 Plt Count 192 Neut % (Auto) 89 H Lymph % (Auto) 6 L Nolan % (Auto) 4 Eos % (Auto) 1 Baso % (Auto) 0 Neut # (Auto) 5.0 Lymph # (Auto) 0.3 L Nolan # (Auto) 0.2 Eos # (Auto) 0.0 Baso # (Auto) 0.0 Immature Gran # (Auto) 0.02 H Absolute Nucleated RBC 0.00 Immature Gran % 0 Nucleated RBC % 0 ESR 10 PT 10.9 INR 1.0 APTT 30.5 Sodium 137 Potassium 3.4 D Chloride 108 H Carbon Dioxide 23.9 Anion Gap 5 L BUN 17 Creatinine 0.6 Estim Creat Clear Calc 75.2 eGFR > 60 BUN/Creatinine Ratio 28 H Glucose [address] Glu mg/dL 146 H 148 H Hemoglobin A1c 6.7 H 6.8 H Calculated Osmolality 278 Lactic Acid 1.0 Calcium 7.8 L Magnesium 2.0 Troponin I < 0.002 C-Reactive Prot, Quant 0.8 Amylase 72 Lipase 35 TSH 0.23 L Free T4 1.43 Quality Measures Quality Measures VTE prophylaxis Assessment & Plan Assessment Current Active Medications: Generic Name Dose Route Start Last Admin Trade Name Freq PRN Reason Stop Dose Admin Acetaminophen 650 mg 06/15/25 22:20 06/16/25 11:19 Acetaminophen Supp 650 Mg Supp MD 07/15/25 22:19 650 mg Q6HR PRN Administration Pain 1-3 Or Fever > 100.4 Dextrose 25 ml 06/15/25 22:17 Dextrose 50%-Water Inj 50 Ml Syringe IV 07/15/25 22:16 Q15MIN PRN BG 50-70 responsive npo pt Dextrose 50 ml 06/15/25 22:17 Dextrose 50%-Water Inj 50 Ml Syringe IV 07/15/25 22:16 Q15MIN PRN BG <50 OR BG <70 & pt unresponsive Enoxaparin Sodium 40 mg 06/16/25 09:00 06/16/25 09:24 Enoxaparin Sod Inj 40 Mg/0.4 Ml Syringe SC 06/30/25 08:59 40 mg QDAY TIMOTHY Administration Glucagon 1 mg 06/15/25 22:17 Glucagon Inj 1 Mg Vial IM Q15MIN PRN BG <70, and no IV access Ciprofloxacin/Dextrose 400 mg in 200 mls @ 200 mls/hr 06/16/25 09:00 06/16/25 09:24 Cipro Ivpb IV 06/23/25 08:59 200 mls/hr Q12HR TIMOTHY Administration Metronidazole 500 mg in 100 mls @ 200 mls/hr 06/16/25 11:45 06/16/25 12:05 Flagyl 500 Mg Iv IV 06/23/25 11:44 200 mls/hr Q8HR TIMOTHY Administration Insulin Human Lispro 0 unit 06/16/25 12:00 06/16/25 17:33 Insulin Lispro (Admelog) 1 Unit/0.01 Ml Unit SC 07/16/25 11:59 Not Given Q6HR TIMOTHY Protocol Morphine Sulfate 2 mg 06/15/25 22:20 06/16/25 16:09 Morphine Sulf Inj 10 Mg/Ml Vial IVP 06/20/25 22:19 2 mg Q4HR PRN Administration PAIN SCALE 4-10(Mod-Sev Ondansetron HCl 4 mg 06/15/25 20:38 06/16/25 17:41 Ondansetron Inj 2 Mg/Ml Inj 2 Ml IVP 07/15/25 20:37 4 mg Q6H PRN Administration NAUSEA OR VOMITING Protocol Pantoprazole Sodium 40 mg 06/16/25 15:00 06/16/25 16:00 Pantoprazole Inj 40 Mg Vial IVP 07/16/25 14:59 40 mg BID TIMOTHY Administration Plan 59-year-old female with past medical history of type 2 diabetes, hypertension, asthma, chronic pain due lumbar compression compression fracture, thyroid cancer s/p thyroidectomy, NURIS, presented to the ED for vomiting,severe nausea, diarrhea and severe abdominal pain. Admitted for suspicion for early SBO versus versus enterocolitis requiring NG tube suction. # Suspected small bowel obstruction # Gastroenteritis # Suspicion of upper GI bleed CT abdomen/pelvis shows distended small bowel loops, suspicious for early SBO vs enteritis. Patient presents with nausea, vomiting, abdominal pain radiating to the back, and diarrhea. Abdomen soft, non-distended, with preserved bowel sounds and no peritoneal signs. NG tube placed to LIS.Low suspicion for mesenteric ischemia given absence of leukocytosis, lactate within normal limits (0.9),but will continue to monitor closely. Patient become episodic with nausea vomiting diarrhea after eating pork with the family. Plan - GI consulted - Ordered upper GI series with contrast - Started metronidazole 500 mg - Pending stool studies-calprotectin, C. difficile, culture, Giardia antigen - Zofran 4 mg PRN for severe nausea - Continue to monitor H&H - Pending result ANCA , antiproteinase 3, antimyeloperoxidase - Pain control with morphine 2 mg IV Q4HR prn # Suspected heart failure # volume overload High clinical suspicion for heart failure with the clinical findings and physical examination. Patient reports new onset of shortness of breath with short distance walk since walk, PND, orthopnea physical exam revealed bilateral for crackles and expiratory wheezes. plan - Echo pending - EKG ordered, was negative - Discontinue IV fluids - Monitor CBC - Monitor BMP - Plan to consult cardiology # Obstructive sleep apnea Patient have a history of obstructive sleep apnea for which she follows sleep specialist as outpatient. Uses BiPAP at home. Plan - Restart BiPAP at night -Monitor O2 saturation # Thyroid cancer s/p thyroidectomy Patient have a history of thyroid cancer. Pending med rec .TSH 0.2; free T4 1.43 - Hold home medication - Follow-up outpatient to evaluate new dosage for levothyroxine # Type 2 diabetes mellitus Patient has a history of type 2 diabetes. Pending med rec Plan - holds Meds - Sliding-scale insulin #Chronic low back pain Chronic [place] user. Pain today not improved with usual regimen. Plan - Avoid poopioids while NPO - Pain control with morphine 2 mg IV Q4HR prn # Opioid dependence, uncomplicated # Cannabis dependence, uncomplicated Chronic [place] use. Urine tox screen is positive for opioid and marijuana.Patient uses daily cannabis for pain control at home Plan ? Continue patient pain management ? No acute intervention needed for cannabis dependence - Monitor possible withdrawal symptoms # Essential hypertension Patient have a history of hypertension controlled on meds. Plan - Hold antihypertensive while on NGT - Resume resume when p.o. - Continue to monitor #Asthma Patient has a history of asthma for which she managed with albuterol as needed Plan -Monitor Health Maintenance: Disposition: Admitted to Med/Surg requiring NGT Feeding: NPO, Thromboprophylaxis: Enoxaparin 40 mg SQ daily GI prophylaxis: Pantoprazole 40 mg IV daily Code Status: Full Code Patient seen and assessed under supervision of attending physician Dr. Childers and discuss with senior resident Dr. Nravaez PGY-2 Renu Yost MD PGY-1, Internal Medicine Attending Provider Attestation/Addendum I attest that I was physically present for the evaluation, physical examination, lab and imaging review of the patient with the residents. I discussed the case with the residents and agree with the findings and plans of care as documented above. Lu Childers MD
--- NOTE | 2025-06-16 19:28 | PC.NURSE ---
Dr. Cui was contacted to let him know that pt is asking if we would remove the NG tube out and continue with NPO order. Per DR. Cui, they would keep NG tube in for now and wait for dayteam MDs decision.
[2025-06-16 20:16] LABS: Stool for WBCs Negative (Negative)
--- NOTE | 2025-06-16 21:05 | PD.IMPROG ---
Documentation for date of: 06/16/25 Subjective Subjective Interval history: Patient evaluated NGT # 300 cc of bilious drainage stool for C. difficile Gram stain culture and sensitivity pending Exam Vital Signs Temp Pulse Resp BP Pulse Ox O2 Del Method 97.9 F 71 17 145/76 H 97 Room Air 06/16/25 15:45 06/16/25 15:45 06/16/25 15:45 06/16/25 15:45 06/16/25 15:45 06/16/25 15:45 Objective Labs 06/16/25 05:41 06/16/25 05:41 Labs: Laboratory Results - last 24 hr 06/15/25 06/15/25 06/16/25 14:12 21:48 05:41 WBC 5.6 D RBC 3.51 L Hgb 11.0 L D Hct 32.8 L MCV 93 MCH 31.3 MCHC 33.5 RDW Std Deviation 42.8 Plt Count 192 Neut % (Auto) 89 H Lymph % (Auto) 6 L [place] % (Auto) 4 Eos % (Auto) 1 Baso % (Auto) 0 Neut # (Auto) 5.0 Lymph # (Auto) 0.3 L [place] # (Auto) 0.2 Eos # (Auto) 0.0 Baso # (Auto) 0.0 Immature Gran # (Auto) 0.02 H Absolute Nucleated RBC 0.00 Immature Gran % 0 Nucleated RBC % 0 ESR 10 PT 10.9 INR 1.0 APTT 30.5 Sodium 137 Potassium 3.4 D Chloride 108 H Carbon Dioxide 23.9 Anion Gap 5 L BUN 17 Creatinine 0.6 Estim Creat Clear Calc 75.2 eGFR > 60 BUN/Creatinine Ratio 28 H Glucose [address] Glu mg/dL 146 H 148 H Hemoglobin A1c 6.7 H 6.8 H Calculated Osmolality 278 Lactic Acid 1.0 Calcium 7.8 L Magnesium 2.0 Troponin I < 0.002 C-Reactive Prot, Quant 0.8 Amylase 72 Lipase 35 TSH 0.23 L Free T4 1.43 Stool for White Cells 06/16/25 17:37 WBC RBC Hgb Hct MCV MCH MCHC RDW Std Deviation Plt Count Neut % (Auto) Lymph % (Auto) [place] % (Auto) Eos % (Auto) Baso % (Auto) Neut # (Auto) Lymph # (Auto) [place] # (Auto) Eos # (Auto) Baso # (Auto) Immature Gran # (Auto) Absolute Nucleated RBC Immature Gran % Nucleated RBC % ESR PT INR APTT Sodium Potassium Chloride Carbon Dioxide Anion Gap BUN Creatinine Estim Creat Clear Calc eGFR BUN/Creatinine Ratio Glucose Estimated Ave Glu mg/dL Hemoglobin A1c Calculated Osmolality Lactic Acid Calcium Magnesium Troponin I C-Reactive Prot, Quant Amylase Lipase TSH Free T4 Stool for White Cells Negative Impressions Impression: Infectious versus inflammatory enterocolitis Partial small bowel obstruction versus ileus continue current management waiting for stool results Assessment & Plan A&P Narrative Nausea vomiting and diarrhea# with abnormal CT scan of the abdomen pelvis differential diagnosis include Infectious versus inflammatory enterocolitis partial complete bowel obstruction ileus Plan N.p.o. NGT to intermittent suction Stool culture and sensitivity with stool for C. difficile and Gram stain Will follow the patient Other medical problems include Diabetes mellitus type 2 Essential hypertension Compression fractions lumbosacral spine Time Spent With Patient Time: Total time spent is greater than 50% in coordination of care (as documented) at patient's floor/unit and/or counseling patient:
[2025-06-16] MEDS: LORazepam 2 MG/ML VIAL 1 MG IVP (22:13)
[2025-06-17] VITALS (16 sets, daily range): BP systolic 132–171; BP diastolic 64–88; PULSE 56–77; RESP 15–93; TEMP 36.1–36.6; O2SAT 94–99
[2025-06-17] MEDS: MORPHINE SULF INJ 10 MG/ML VIAL 2 MG IVP ×5 (00:26→17:03)
[2025-06-17] MEDS: ONDANSETRON INJ 2 MG/ML INJ 2 ML 4 MG IVP (04:20)
[2025-06-17] MEDS: metroNIDAZOLE/NS 500 MG IVPB 500 MG/100 ML BAG 200 MG IV ×2 (05:31→14:23)
[2025-06-17 06:16] LABS: Basophils # (Auto) 0.0 Thou/mm3 (0.0-0.2); Basophils % (Auto) 0 % (0-2.5); Eosinophils # (Auto) 0.1 Thou/mm3 (0.0-0.5); Eosinophils % (Auto) 1 % (0-10); Hematocrit 32.3 % (36.0-46.0); Hemoglobin 11.0 g/dL (12.0-16.0); Immature Granulocytes Auto 0.01 Thou/mm3 (0.00-0.00); Lymphocytes # (Auto) 0.8 Thou/mm3 (1.0-4.8); Lymphocytes % (Auto) 17 % (10-50); Mean Corpuscular HGB Conc 34.1 g/dl (31.0-37.0); Mean Corpuscular Hemoglobin 31.6 pg (25.0-35.0); Mean Corpuscular Volume 93 fL (80-100); Monocytes # (Auto) 0.4 Thou/mm3 (0.0-0.8); Monocytes % (Auto) 10 % (0-12); Neutrophils # (Auto) 3.1 Thou/mm3 (1.8-7.7); Neutrophils % (Auto) 71 % (37-80); Nucleated Red Blood Cell # 0.00 Thou/mm3 (0.00-0.00); Nucleated Red Blood Cell % 0 /100 WBC (0); Platelet Count 167 Thou/mm3 (140-440); RDW Standard Deviation 42.2 fL (36.4-46.3); Red Blood Count 3.48 Miln/mm3 (4.00-5.20); White Blood Count 4.4 Thou/mm3 (3.6-11.0)
[2025-06-17 06:56] LABS: Anion Gap 9 (7-16); BUN/Creatinine Ratio 26 Ratio (12-20); Blood Urea Nitrogen 13 mg/dL (9-23); Calcium 7.9 mg/dL (8.3-10.6); Carbon Dioxide 24.5 mMol/L (20.0-31.0); Chloride 106 mMol/L (98-107); Creatinine (Component) 0.5 mg/dL (0.6-1.3); Estimated Creatinine Clearance 90.3 mL/min (>60); Glucose 94 mg/dL (74-106); Magnesium 1.2 mg/dL (1.6-2.6); Osmolality,Calculated 277 (275-295); Potassium 3.3 mMol/L (3.4-5.1); Sodium 139 mMol/L (136-145); eGFR > 60 See Note
[2025-06-17] MEDS: CIPROFLOXACIN/D5w 400 MG IVPB 400 MG/200 ML BAG 200 MG IV ×2 (08:06→20:44)
[2025-06-17] MEDS: Magnesium Sulfate 4 GM Ivpb 4 GM/50 ML BAG IV (09:13)
--- NOTE | 2025-06-17 10:06 | PC.SS ---
Late note 06-16-25: SS met with patient regarding her d/c plan. Pt is alert/oriented. Pt was admitted for Abdominal Pain, SBO. Pt confirmed demographic and contact information is correct on facesheet. Pt resides with and dtr. Pt ambulates using a cane. Pt is ok with all ADLs. Pt utilizes a CPAP at night. Patient?s pharmacy of choice is [facility]. Pt named her , Guicho Shepard medical decision maker if she is unable. Patient?s choice is to return home upon d/c. Pt states she is diabetic, has glucometer, and test strips. Pt states she is not on dialysis. Pt states she followed up with PCP 3 weeks ago. will provide transportation home. D/C plan: Return home Next of Kin: Guicho Shepard, , phone# [phone] PCP: Dr. Nata Wang from [facility] Address: Correct on facesheet
[2025-06-17] MEDS: POTASSIUM CHL 10 mEq IVPB 10 MEQ/100 ML BAG 100 MEQ IV ×2 (12:59→14:22)
[2025-06-17 13:34] LABS: Clostridium Difficile PCR Negative (Negative)
--- NOTE | 2025-06-17 14:14 | ESPR_ITS ---
<Statement entered by Iva Narvaez MD - 06/17/25 15:47> Patient was seen and examined at bedside. I agree on the assessment and plan on this note as documented by resident Renu Yost PGY1. Patient seen at bedside, small bowel series yesterday were negative for SBO, NG tube discontinued. Was evaluated by GI yesterday, patient has coffee-ground suction from NG tube, we will keep patient n.p.o., likely will undergo EGD by gastroenterology, started patient on scheduled Reglan 4 doses, pending echocardiogram. Patient requesting CPAP at night, informed nurse, was ordered yesterday. Will resume home medications post EGD likely in a.m. Case discussed with attending Dr. Juanita Narvaez MD PGY-2 Documentation for date of: 06/17/25 Subjective Subjective Interval history: The patient 59-year-old female past medical history of type 2 diabetes, hypertension, asthma, chronic pain due to lumbar compression fracture (on Baxter), thyroid cancer s/p thyroidectomy, obstructive sleep apnea and valley fever. Presented to the ED with 1 day of 7 episode of nonbilious and nonbloody vomiting, severe nausea, diarrhea, acute abdominal pain and diaphoresis. Patient admitted for suspicion of early small bowel obstruction versus enteritis requiring NG tube suction. Overnight Overnight patient's NGT drain 300 cc. Patient had 5 episode of diarrhea. She mention feeling slightly improved compared to yesterday. Small bowel x-ray impression was negative for small bowel obstruction. Vitals were stable. Today Patient was seen and examined at bedside. Labs reviewed, no significant changes from yesterday. Electrolyte replenished. Still pending stool culture, sensitivities, C. difficile Gram stain. Patient continues to endorses abdominal pain, nausea, diarrhea. She denies shortness of breath, chest pain, urinary changes. Per GI patient NG tube has been discontinued and she is n.p.o. for possible EGD today. Exam Vital Signs Temp Pulse Resp BP Pulse Ox O2 Del Method 97.9 F 76 17 135/86 H 95 Room Air 06/16/25 08:00 06/16/25 08:00 06/16/25 08:00 06/16/25 08:00 06/16/25 08:00 06/16/25 08:00 Narrative Exam Physical Exam: General: Alert, no acute distress. Skin: Warm, dry, intact, no obvious rash. HEENT: Normocephalic, atraumatic.Normal conjunctiva, PERRL,no scleral icterus Cardiovascular: Regular rate and rhythm, no murmur, +S1/S2. Respiratory: Bilateral crackles, expiratory wheezes bilaterally Gastrointestinal:Generalized tenderness but more prominent on the left side, mild distention Extremities: No edema, no cyanosis, no clubbing. 2+ radial pulse bilaterally, 2+ pedal pulse bilaterally. Neuro: No focal deficits observed. Conversant, moving all extremities. No overt cerebellar signs/incoordination. Psychiatric: Cooperative, appropriate affect. Objective Labs 06/17/25 05:40 06/17/25 05:40 Labs: Laboratory Results - last 24 hr 06/15/25 06/15/25 06/15/25 14:12 14:40 21:48 WBC 10.4 RBC 4.06 Hgb 13.1 Hct 37.8 MCV 93 MCH 32.3 MCHC 34.7 RDW Std Deviation 43.5 Plt Count 217 Neut % (Auto) 95 H Lymph % (Auto) 2 L [place] % (Auto) 2 Eos % (Auto) 1 Baso % (Auto) 0 Neut # (Auto) 9.9 H Lymph # (Auto) 0.2 L [place] # (Auto) 0.2 Eos # (Auto) 0.1 Baso # (Auto) 0.0 Immature Gran # (Auto) 0.02 H Absolute Nucleated RBC 0.00 Immature Gran % 0 Nucleated RBC % 0 ESR 10 PT INR APTT Sodium 139 Potassium 3.9 Chloride 109 H Carbon Dioxide 21.6 Anion Gap 8 BUN 16 Creatinine 0.6 Estim Creat Clear Calc 75.2 eGFR > 60 BUN/Creatinine Ratio 27 H Glucose [address] Glu mg/dL 146 H Hemoglobin A1c 6.7 H Calculated Osmolality 283 Lactic Acid 0.9 1.0 Calcium 8.5 Corrected Calcium 8.5 Magnesium 1.2 L Total Bilirubin 0.5 AST 16 ALT 12 Alkaline Phosphatase 56 Troponin I < 0.002 C-Reactive Prot, Quant 0.8 Total Protein 6.3 Albumin 4.3 Globulin 2.0 L Albumin/Globulin Ratio 2.2 Amylase 72 Lipase 35 TSH 0.23 L Free T4 1.43 Ur Collection Type Catheter Urine Color Lt-Yellow Urine Clarity Clear Urine pH 6.0 Ur Specific [place] 1.023 Urine Protein Trace Urine Glucose (UA) 1+ A Urine Ketones 1+ A Urine Blood 2+ A Urine Nitrite Negative Urine Bilirubin Negative Urine Urobilinogen (Auto) Negative Ur Leukocyte Esterase Positive Urine RBC 9 H Urine WBC 2 Ur Squamous Epith Cells 1 Urine Bacteria None Urine Opiates Screen Positive A Urine Fentanyl Screen Negative Ur Barbiturates Screen Negative U Amphetamin/Meth Scrn Negative U Benzodiazepines Scrn Negative U Cocaine Metab Screen Negative U Marijuana (THC) Screen Positive A Urine Alcohol Negative 06/16/25 05:41 WBC 5.6 D RBC 3.51 L Hgb 11.0 L D Hct 32.8 L MCV 93 MCH 31.3 MCHC 33.5 RDW Std Deviation 42.8 Plt Count 192 Neut % (Auto) 89 H Lymph % (Auto) 6 L [place] % (Auto) 4 Eos % (Auto) 1 Baso % (Auto) 0 Neut # (Auto) 5.0 Lymph # (Auto) 0.3 L [place] # (Auto) 0.2 Eos # (Auto) 0.0 Baso # (Auto) 0.0 Immature Gran # (Auto) 0.02 H Absolute Nucleated RBC 0.00 Immature Gran % 0 Nucleated RBC % 0 ESR PT 10.9 INR 1.0 APTT 30.5 Sodium 137 Potassium 3.4 D Chloride 108 H Carbon Dioxide 23.9 Anion Gap 5 L BUN 17 Creatinine 0.6 Estim Creat Clear Calc 75.2 eGFR > 60 BUN/Creatinine Ratio 28 H Glucose [address] Glu mg/dL 148 H Hemoglobin A1c 6.8 H Calculated Osmolality 278 Lactic Acid Calcium 7.8 L Corrected Calcium Magnesium 2.0 Total Bilirubin AST ALT Alkaline Phosphatase Troponin I C-Reactive Prot, Quant Total Protein Albumin Globulin Albumin/Globulin Ratio Amylase Lipase TSH Free T4 Ur Collection Type Urine Color Urine Clarity Urine pH Ur Specific [place] Urine Protein Urine Glucose (UA) Urine Ketones Urine Blood Urine Nitrite Urine Bilirubin Urine Urobilinogen (Auto) Ur Leukocyte Esterase Urine RBC Urine WBC Ur Squamous Epith Cells Urine Bacteria Urine Opiates Screen Urine Fentanyl Screen Ur Barbiturates Screen U Amphetamin/Meth Scrn U Benzodiazepines Scrn U Cocaine Metab Screen U Marijuana (THC) Screen Urine Alcohol Quality Measures Quality Measures VTE prophylaxis Assessment & Plan Assessment Current Active Medications: Generic Name Dose Route Start Last Admin Trade Name Freq PRN Reason Stop Dose Admin Acetaminophen 650 mg 06/15/25 22:20 06/16/25 11:19 Acetaminophen Supp 650 Mg Supp OK 07/15/25 22:19 650 mg Q6HR PRN Administration Pain 1-3 Or Fever > 100.4 Dextrose 25 ml 06/15/25 22:17 Dextrose 50%-Water Inj 50 Ml Syringe IV 07/15/25 22:16 Q15MIN PRN BG 50-70 responsive npo pt Dextrose 50 ml 06/15/25 22:17 Dextrose 50%-Water Inj 50 Ml Syringe IV 07/15/25 22:16 Q15MIN PRN BG <50 OR BG <70 & pt unresponsive Enoxaparin Sodium 40 mg 06/16/25 09:00 06/16/25 09:24 Enoxaparin Sod Inj 40 Mg/0.4 Ml Syringe SC 06/30/25 08:59 40 mg QDAY TIMOTHY Administration Glucagon 1 mg 06/15/25 22:17 Glucagon Inj 1 Mg Vial IM Q15MIN PRN BG <70, and no IV access Ciprofloxacin/Dextrose 400 mg in 200 mls @ 200 mls/hr 06/16/25 09:00 06/16/25 09:24 Cipro Ivpb IV 06/23/25 08:59 200 mls/hr Q12HR TIMOTHY Administration Metronidazole 500 mg in 100 mls @ 200 mls/hr 06/16/25 11:37 Flagyl 500 Mg Iv IV 06/23/25 11:36 Q8HR [facility] Insulin Human Lispro 0 unit 06/16/25 00:00 06/16/25 11:18 Insulin Lispro (Admelog) 1 Unit/0.01 Ml Unit SC 07/16/25 00:00 Not Given Q6HR [facility] Protocol Insulin Human Lispro 0 unit 06/16/25 12:00 Insulin Lispro (Admelog) 1 Unit/0.01 Ml Unit SC 07/16/25 11:59 Q6HR [facility] Protocol Morphine Sulfate 2 mg 06/15/25 22:20 06/16/25 07:49 Morphine Sulf Inj 10 Mg/Ml Vial IVP 06/20/25 22:19 2 mg Q4HR PRN Administration PAIN SCALE 4-10(Mod-Sev Ondansetron HCl 4 mg 06/15/25 20:38 06/16/25 04:34 Ondansetron Inj 2 Mg/Ml Inj 2 Ml IVP 07/15/25 20:37 4 mg Q6H PRN Administration NAUSEA OR VOMITING Protocol Plan 59-year-old female with past medical history of type 2 diabetes, hypertension, asthma, chronic pain due lumbar compression compression fracture, thyroid cancer s/p thyroidectomy, NURIS, presented to the ED for vomiting,severe nausea, diarrhea and severe abdominal pain. Admitted for suspicion for early SBO versus versus enterocolitis requiring NG tube suction. # Suspicion of GI bleed # Ileus, # Gastroenteritis, Inflammatory vs infectious enterocolitis # Partial SBO- resolved CT abdomen/pelvis shows distended small bowel loops, suspicious for early SBO vs enteritis. Patient presents with nausea, vomiting, abdominal pain radiating to the back, and diarrhea. Abdomen soft, non-distended, with preserved bowel sounds and no peritoneal signs. NG tube placed to LIS.Low suspicion for mesenteric ischemia given absence of leukocytosis, lactate within normal limits (0.9),but will continue to monitor closely. Patient become episodic with nausea vomiting diarrhea after eating pork with the family. Small bowel x-ray done on 06/16/25 was negative for SBO. NG tube discontinued on 06/17/2025 per GI recommendation, patient was made n.p.o. for possible EGD today. Plan - Patient made n.p.o. - Per GI EGD planned for today - Continue IV antibiotics - Pending stool studies-calprotectin, C. difficile, culture, Giardia antigen - Pending result ANCA , antiproteinase 3, antimyeloperoxidase - Pain control with morphine 2 mg IV Q4HR prn - Started on Reglan 5 mg IV every 8 hours # Suspected heart failure High clinical suspicion for heart failure with the clinical findings and physical examination. Patient reports new onset of shortness of breath with short distance walk since walk, PND, orthopnea physical exam revealed bilateral for crackles and expiratory wheezes. plan - Echo pending - EKG ordered, was negative - Monitor CBC - Monitor BMP - Plan to consult cardiology - no IV fluids-concern for volume overload # Obstructive sleep apnea Patient have a history of obstructive sleep apnea for which she follows sleep specialist as outpatient. Uses BiPAP at home. Plan - Continue CPAP - Monitor O2 saturation # Thyroid cancer s/p thyroidectomy Patient have a history of thyroid cancer. Had a thyroidectomy procedure in the past. pending med rec .TSH 0.2; free T4 1.43 - Hold home medication - Follow-up outpatient to evaluate new dosage for levothyroxine # Type 2 diabetes mellitus Patient has a history of type 2 diabetes. Pending med rec Plan - holds Meds - Sliding-scale insulin #Chronic low back pain 2/2 lumbosacral spinal compression # Cervicalgia Patient has a history of lumbar compression fracture, for which she is chronically managed with Baxter. She also has a history of cervical spine surgery and report ongoing chronic neck and back pain. Today's pain has not improved with the usual management regimen. Plan - Avoid opioids while NPO - Continue pain control with morphine 2 mg IV Q4HR prn # Cannabis dependence, uncomplicated Chronic Baxter use. Urine tox screen is positive for opioid and marijuana.Patient uses daily cannabis for pain control at home. Plan ? Continue patient pain management ? No acute intervention needed for cannabis dependence - Monitor possible withdrawal symptoms # Essential hypertension Patient have a history of hypertension controlled on meds. Plan - Hold antihypertensive - Continue to monitor #Asthma Patient has a history of asthma for which she managed with albuterol as needed Plan -Monitor Hospital management: Lines: peripheral IV Diet: NPO Bowel: Senna GI prophylaxis: pantoprazole DVT prophylaxis: SCDs Disposition: Med surg, EGD today CODE STATUS: Full code Patient seen and assessed under supervision of attending physician Dr. Grant and discuss with senior resident Dr. Narvaez PGY-2 Renu Yost MD PGY-1, Internal Medicine Attending Provider Attestation/Addendum I, Saskia Grant DO, attest that I was physically present for the guzmán portions of the service and evaluated the patient with the resident and I reviewed and discussed the case with the resident and agree with the resident's findings and plans of care as documented above Patient seen and eval this a.m. She states that she is feeling much better today. She continues to have mild pain in her abdomen, but abdomen is soft and nontender and while palpating when patient is distracted. She states that her pain is between her ribs and her left hip. She states that she suffers from chronic lumbar pain due to her compression fractures but she is pending MRI outpatient. NG tube had been in place and with 300 cc of coffee-ground emesis noted. However, Gastrografin small bowel follow-through was negative for any obstruction. Patient remains n.p.o. at this time as she is pending possible endoscopy this evening due to coffee-ground emesis. Patient does take a lot of pain medications, suspect possible ileus as well. Daughter was at bedside stated that the patient does often get constipation, but her symptoms had started with watery diarrhea a few days prior to presentation. Will follow-up with stool studies otherwise.
[2025-06-17] MEDS: METOCLOPRAMIDE INJ 5 MG/ML VIAL 2 ML IVP (14:22)
[2025-06-17] MEDS: MORPHINE SULF INJ 10 MG/ML VIAL IVP (20:15)
[2025-06-18] VITALS (8 sets, daily range): BP systolic 121–162; BP diastolic 70–91; PULSE 58–63; RESP 16–98; TEMP 36.1–36.3; O2SAT 97–100; BMI 22.7
[2025-06-18] MEDS: MORPHINE SULF INJ 10 MG/ML VIAL 2 MG IVP ×2 (00:22→04:18)
[2025-06-18] MEDS: metroNIDAZOLE/NS 500 MG IVPB 500 MG/100 ML BAG 200 MG IV ×2 (00:24→06:10)
[2025-06-18 06:07] LABS: Basophils # (Auto) 0.0 Thou/mm3 (0.0-0.2); Basophils % (Auto) 1 % (0-2.5); Eosinophils # (Auto) 0.2 Thou/mm3 (0.0-0.5); Eosinophils % (Auto) 5 % (0-10); Hematocrit 32.5 % (36.0-46.0); Hemoglobin 11.1 g/dL (12.0-16.0); Immature Granulocytes Auto 0.01 Thou/mm3 (0.00-0.00); Lymphocytes # (Auto) 1.0 Thou/mm3 (1.0-4.8); Lymphocytes % (Auto) 29 % (10-50); Mean Corpuscular HGB Conc 34.2 g/dl (31.0-37.0); Mean Corpuscular Hemoglobin 31.7 pg (25.0-35.0); Mean Corpuscular Volume 93 fL (80-100); Monocytes # (Auto) 0.4 Thou/mm3 (0.0-0.8); Monocytes % (Auto) 11 % (0-12); Neutrophils # (Auto) 1.9 Thou/mm3 (1.8-7.7); Neutrophils % (Auto) 54 % (37-80); Nucleated Red Blood Cell # 0.00 Thou/mm3 (0.00-0.00); Nucleated Red Blood Cell % 0 /100 WBC (0); Platelet Count 183 Thou/mm3 (140-440); RDW Standard Deviation 41.1 fL (36.4-46.3); Red Blood Count 3.50 Miln/mm3 (4.00-5.20); White Blood Count 3.5 Thou/mm3 (3.6-11.0)
[2025-06-18 06:29] LABS: Anion Gap 8 (7-16); BUN/Creatinine Ratio 16 Ratio (12-20); Blood Urea Nitrogen 8 mg/dL (9-23); Calcium 8.2 mg/dL (8.3-10.6); Carbon Dioxide 25.4 mMol/L (20.0-31.0); Chloride 108 mMol/L (98-107); Creatinine (Component) 0.5 mg/dL (0.6-1.3); Estimated Creatinine Clearance 90.3 mL/min (>60); Glucose 81 mg/dL (74-106); Magnesium 1.8 mg/dL (1.6-2.6); Osmolality,Calculated 278 (275-295); Potassium 3.4 mMol/L (3.4-5.1); Sodium 141 mMol/L (136-145); eGFR > 60 See Note
[2025-06-18] MEDS: CIPROFLOXACIN/D5w 400 MG IVPB 400 MG/200 ML BAG 200 MG IV (08:55)
[2025-06-18] MEDS: BACLOFEN 10 MG TABLET PO (09:09)
[2025-06-18] MEDS: LEVOTHYROXINE SODIUM 112 MCG TABLET PO (09:09)
--- NOTE | 2025-06-18 14:48 | ESDS_ITS ---
<Statement entered by Allan Bro MD - 06/23/25 14:36> I reviewed above note and agree with findings and plans. I have also personally examined the patient with medicine team and went over assessment and plan with medical team including technical internship and resident physician. <Statement entered by Iva Narvaez MD - 06/18/25 16:56> Patient was seen and examined by me personally. I have reviewed the below documentation by the team resident and agree with its findings. Discharge plan was discussed with the attending, Dr. Bro. Iva Navraez MD Internal Medicine, PGY-2 Planned Discharge Date 06/18/25 DS: Providers Provider Date of admission: 06/15/25 20:38 Primary care physician: Nata Wang PA-C Admitting Provider: Yousif Parks MD Attending Provider on Admission: Lu Childers MD Consults: 06/15/25 19:13 Consult to Gastroenterology Stat Comment: SBO COLITIS Consulting Provider: [place] No 06/18/25 07:40 Referral Physical Therapy Routine Comment: Physician Instructions: Attending Provider on DC: RESIDENT Lola Discharging Provider: RESIDENT Lola DS: Diagnosis Problem List Completed Was Problem List Reviewed/Reconciled?: Yes Hospital Course Hospital Course Hospital course: Summary The patient 59-year-old female past medical history of type 2 diabetes, hypertension, asthma, chronic pain due to lumbar compression fracture (on [place]), thyroid cancer s/p thyroidectomy, obstructive sleep apnea and valley fever. Presented to the ED on 06/15/2025 with 1 day of 7 episode of nonbilious and nonbloody vomiting, severe nausea, diarrhea, acute abdominal pain and diaphoresis. Patient admitted for suspicion of early small bowel obstruction v ersus enteritis requiring NG tube suction. In the ED CT abdomen showed distended small bowel, with suspicious for early SBO versus enteritis, U-Tox was positive for opiate and marijuana. Patient was placed on NGT per GI recommendation. She was started on Zofran, ciprofloxacin and metronidazole and IV fluids. Patient was admitted. NG tube suction average of 300 cc of coffee- ground drainage and was started on Protonix. Her chronic pain was managed. Bowel series was obtained negative for SBO. NG tube discontinued. Per GI rec patient was made n.p.o. for EGD (on 06/17/2025) and started on Reglan 4 doses. EGD showed erosion at the gastroesophageal junction, esophagitis noted esophagus. Patient noted significant changes in the symptoms post EGD. She reports feeling better, no nausea, no vomiting, no abdominal and less pain altogether. Throughout the hospital course patient other problems were managed and her condition improved remarkably with progression of hospital course. Further plan to discharge the patient home since she is stable and responded well to hospital treatment. Discharge recommendation: - Follow-up with PCP within 1 week of discharge for GI referrral of EGD findings - Follow-up cardiology outpatient for possible Heart failure work-up - Patient advised discontinue use of NSAIDs due to the presence of esophageal ulcers - Continue rest of medications as previously prescribed - Start hydrocodone- acetaminophen 5-325 mg tablet p.o. every 6 hours as needed - Start Protonix 40 mg p.o. twice daily - Start Carafate 1 g p.o. 4 times daily - Continue rest of medications as previously prescribed - Return to the ED or call EMS is symptoms return and/or worsen Hospital Diagnoses: - Upper GI bleed likely secondary to chronic NSAID use - Esophageal ulcer - Ileus - Gastroenterocolitis infectious versus inflammatory - Partial SBO - Suspected heart failure - Obstructive sleep apnea - Type 2 diabetes mellitus - Chronic back pain 2/2 to lumbosacral spinal compression - Cervicalgia - Cannabis dependence, uncomplicated - Essential hypertension - Asthma Case discussed with Attending Physician Dr. Bro and senior resident Dr Brice Yost-Internal Medicine PGY-1 Disclaimer: This note was dictated by speech recognition. Minor errors in hl7 developer may be present due to voice recognition software. Time Spent with Patient Time attestation: Total time spent providing and/or coordinating discharge services: Time spent: Less than 30 minutes Exam Vital Signs Temp Pulse Resp BP Pulse Ox O2 Del Method FiO2 97.0 F 58 L 16 142/83 H 99 Room Air 30 06/18/25 12:06/18/25 12:06/18/25 12:06/18/25 12:06/18/25 12:06/18/25 12:06/17/25 13:44 Narrative Exam Physical Exam: General: Alert, no acute distress. Skin: Warm, dry, intact, no obvious rash. HEENT: Normocephalic, atraumatic.Normal conjunctiva, PERRL,no scleral icterus Cardiovascular: Regular rate and rhythm, no murmur, +S1/S2. Respiratory: Lungs are clear to auscultation, respirations unlabored, no crackles, no wheezing. Gastrointestinal: Soft, nontender, non-distended. No guarding or rebound tenderness. Extremities: No edema, no cyanosis, no clubbing. 2+ radial pulse bilaterally, 2+ pedal pulse bilaterally. Neuro: No focal deficits observed. Conversant, moving all extremities. No overt cerebellar signs/incoordination. Psychiatric: Cooperative, appropriate affect. Discharge Plan Plan Patient Disposition: HOME (Self Care) Care Plan Goals: -Follow up with PCP within 1 week of discharge, if you do not have a primary care physician you can come see us at the [facility] by calling [phone] -Please follow up outpatient with cardiology to obtain further cardiac work up including electrocardiogram -Continue rest of medications as previously prescribed -Return to the ED or call EMS if symptoms return and/or worsen Prescriptions/Referrals Prescriptions/Med Rec: New hydrocodone-acetaminophen 5-325 mg tablet 1 tab PO Q6H MDD 4 PRN (Reason: Pain) Qty: 0 0RF pantoprazole [Protonix] 40 mg tablet,delayed release (DR/EC) 40 mg PO BID Qty: 30 1RF sucralfate [Carafate] 1 gram tablet 1 g PO QID Qty: 120 0RF Continued alprazolam [Xanax] 0.5 MG tablet 0.5 mg PO BID Qty: 0 baclofen 10 MG tablet 10 mg PO TID Qty: 0 levothyroxine 112 mcg tablet 112 mcg PO DAILY Patient Comments: TAKE ONE TABLET BY MOUTH EVERY DAY IN THE MORNING BEFORE MEALS FOR THYROID tramadol 50 mg tablet 50 mg PO Q6H Patient Comments: TAKE 1 TO 2 TABLETS BY MOUTH FOUR TIMES DAILY NEEDED FOR PAIN gabapentin 800 mg tablet 800 mg PO QID Patient Comments: TAKE ONE TABLET BY MOUTH FOUR TIMES DAILY calcium carbonate-vitamin D3 600 mg-10 mcg (400 unit) tablet 1 tab PO Q12H Patient Comments: TAKE ONE TABLET BY MOUTH TWICE DAILY VITAMIN Linzess 145 mcg capsule 145 mcg PO DAILY Patient Comments: TAKE ONE CAPSULE BY MOUTH EVERY MORNING BEFORE MEALS FOR CONSTIPATION benazepril 20 mg tablet 20 mg PO DAILY Patient Comments: TAKE ONE TABLET BY MOUTH EVERY DAY FOR BLOOD PRESSURE Arnuity Ellipta 200 mcg/actuation blister with device 1 inh INHALATION DAILY Patient Comments: INHALE ONE PUFF BY MOUTH EVERY DAY Discontinued Hydrocodone/Acetaminophen * (NORCO 10/325 *) 1 TAB tablet 1 tab PO Q6H PRN (Reason: ABDOMINAL PAIN) Qty: 40 0RF ibuprofen 600 mg tablet 600 mg PO Q6H Patient Comments: TAKE ONE TABLET BY MOUTH EVERY 6 TO 8 HOURS WITH FOOD OR MILK NEEDED FOR PAIN Referrals: Nata Wang PA-C [Primary Care Provider] - Patient/Caregiver Discharge Instructions Education Materials: Abdominal Pain Print Language: Palestinian Stand Alone Forms: Madelyn Award Info., Patient Portal Info Letter Discharge Order Discharge Orders: Discharge (Routine); Ordered 06/18/25 Ordered By: Jacklyn Emmanuel Quality Discharge Quality Measures VTE prophylaxis
[2025-06-21 14:40] LABS: ANCA Screen NEGATIVE (NEGATIVE); Myeloperoxidase Ab <1.0 AI (<1.0); Proteinase-3 Ab <1.0 AI (<1.0)
[2025-06-21 14:41] LABS: Giardia Result NOT DETECTED
[2025-06-24 06:25] LABS: Calprotectin, Stool* 331 mcg/g
== END 2025-06-18 13:43 | disposition home or self-care (01) | DRG 247 ==
LOC: SERX 20:00 → SERHOLD 21:19 → S3SX 06-16 00:36
PROVIDERS: Specialist; Admitting Provider Student in an Organized Health Care Education/Training Program; Emergency Provider Emergency Medicine; PCP Physician Assistant; Visit Provider Student in an Organized Health Care Education/Training Program
PROC: 0DB48ZX Excision of Esophagogastric Junction, Via Natural or Artificial Opening Endoscopic, Diagnostic (ICD-10-PCS; CPT 43239; principal; 2025-06-17 21:30)
DX: K56.600 Partial intestinal obstruction, unspecified as to cause (principal); K52.9 Noninfective gastroenteritis and colitis, unspecified; E11.9 Type 2 diabetes mellitus without complications; G89.29 Other chronic pain; M48.56XA Collapsed vertebra, not elsewhere classified, lumbar region, initial encounter for fracture; F11.20 Opioid dependence, uncomplicated; F12.20 Cannabis dependence, uncomplicated; I10 Essential (primary) hypertension; J45.909 Unspecified asthma, uncomplicated; Z87.891 Personal history of nicotine dependence; F41.9 Anxiety disorder, unspecified; E89.0 Postprocedural hypothyroidism; G47.33 Obstructive sleep apnea (adult) (pediatric); K56.7 Ileus, unspecified; K22.11 Ulcer of esophagus with bleeding; Z88.8 Allergy status to other drugs, medicaments and biological substances; Z79.1 Long term (current) use of non-steroidal anti-inflammatories (NSAID); Z79.4 Long term (current) use of insulin; Z79.890 Hormone replacement therapy; Z79.891 Long term (current) use of opiate analgesic
CPT/HCPCS: 36415; 71045; 74176; 74250; 80048; 80053; 80307; 80320; 81001; 82150; 83036; 83605; 83690; 83735; 83993; 84439; 84443; 84484; 85025; 85610; 85652; 85730; 86021; 86036; 86140; 87015; 87045; 87046; 87077; 87205; 87329; 87400; 87493; 87811; 87899; 93005; 94660; 96361; 96365; 96366; 96375; 96376; 97162; 99285; J0744; J1171; J1200; J1650; J1885; J2060; J2250; J2270; J2405; J2470; J2765; J3010; J3475; J3480; J3490; J7120; Q9963; A9270; G0480; J1836

== ENCOUNTER → 2025-08-04 | Outpatient (CLI) | payer MEDICAID, SELFPAY ==
--- NOTE | 2025-06-18 19:12 | PD.IMPROG ---
Documentation for date of: 06/18/25 Subjective Subjective Interval history: Late entry for the note Case discussed with internal medicine team Hemoglobin hematocrit stable at 11.1 and 32.5 Upper endoscopy showed distal esophageal erosion most likely the cause of hematemesis along with gastritis Objective Impressions Impression: Distal esophageal erosion Gastritis Stable hemoglobin hematocrit okay to discharge patient on a PPI Avoid NSAIDs Assessment & Plan Time Spent With Patient Time: Total time spent is greater than 50% in coordination of care (as documented) at patient's floor/unit and/or counseling patient:
--- NOTE | 2025-08-04 10:38 | XR_ITS ---
Examination: MRI thoracic spine without contrast. Date and time of exam: August 04, 2025, 1053 hours INDICATIONS: Mid back pain beginning 2019, worse with walking, difficulty walking, numbness in Kidneys Technique: Multiple sagittal and axial images of the thoracic spine have been obtained. T1 weighted localizer, sagittal T2 weighted images, TR 30-50, TE 148, T1 weighted sagittal images, TR 650, TE 14, T2-weighted transverse images, TR 6770, TE 142 Findings: Mild kyphosis dorsal spine secondary to minimal chronic osteoporotic wedging of mid dorsal vertebral bodies No acute thoracic fracture Diffuse thoracic disc dislocation Diffuse [id number] thoracic disc narrowing T8-T9 2 mm central disc bulge 1 mm disc bulges T9-T10, T10-T11, T11-T12 No impingement upon the thoracic cord Mild increased signal involving the T8 and T9 vertebral bodies, clinical correlation advised Impression: Mild to moderate diffuse thoracic degenerative disc disease Minor thoracic disc bulges, no disc protrusion upon the thoracic cord Abnormal signal involving T8 and T9 vertebral bodies, recommend this patient return for MRI thoracic spine post intravenous contrast to exclude abnormal enhancement
--- NOTE | 2025-08-04 10:38 | XR_ITS ---
Examination: MRI cervical spine without intravenous contrast Date and time of exam: August 04, 2025, 1053 hours, comparison 08/10/2022 INDICATIONS: History laminectomies C3-C6, increasing neck pain beginning 2019 numbness in Disease Technique: Multiple axial and sagittal sections of the cervical spine to been obtained. T2 weighted sagittal sections, TR 3, 270, TE 117 T1-weighted sagittal sections, TR 500, TE 11 T1-weighted axial sections, TR 607, TE 12, axial sections TR 18, TE 27 and T2 weighted transverse sections, TR 3920, TE 122. Findings: Adequate alignment cervical vertebral bodies Cervical fusion C3-C7 with anatomic alignment, significant magnetic susceptibility artifact Axial and sagittal images demonstrate no focal thoracic disc protrusion and no impingement upon the thoracic cord IMPRESSION: Extensive cervical fusion and laminectomy with anatomic alignment No significant acquired spinal stenosis
== END | disposition home or self-care (01) ==
LOC: SMRI 10:04
PROVIDERS: PCP Physician Assistant; Referring Provider Physician Assistant; Visit Provider Physician Assistant
DX: M51.34 Other intervertebral disc degeneration, thoracic region (principal); M53.84 Other specified dorsopathies, thoracic region; M43.22 Fusion of spine, cervical region
CPT/HCPCS: 72141; 72146

== ENCOUNTER → 2025-08-05 | Outpatient (CLI) | payer MEDICAID, SELFPAY ==
--- NOTE | 2025-08-05 10:47 | XR_ITS ---
Examination: CT soft tissue neck, without intravenous contrast. 2-D coronal reconstructions. 2-D sagittal reconstructions. Date and time of exam :August 05, 2025, 1300 hours, comparison October 12, 2022 INDICATIONS: Left anterior Hand pain beginning 2 years ago. CTDI: vol (mGy):12.3 DLP: (mGycm):320 Technique: 1.25 mm axial sections of the neck of the obtained. Coronal and sagittal reconstructions have been obtained. Low dose protocols were performed. One or more of the following dose reduction techniques were used; automated exposure control, adjustment of the mA and/or KV according to patient size, use of iterative reconstruction technique. Findings: Symmetrical nasopharynx oropharynx Right submental lymph nodes and left submental lymph nodes measuring up to 22 mm The larynx appears normal Thyroid lobes are not enlarged Normal epiglottis IMPRESSION: No soft tissue neck mass Cervical lymphadenopathy as above Recommend ultrasound soft tissue follow-up of the palpable mass in the anterior neck
== END | disposition home or self-care (01) ==
PROVIDERS: PCP Physician Assistant; Referring Provider Physician Assistant; Visit Provider Physician Assistant
DX: R59.0 Localized enlarged lymph nodes (principal)
CPT/HCPCS: 70490